=== PATIENT | female | born 1975 | race Caucasian/White ===

== ENCOUNTER 2018-04-21 08:11 | Outpatient (CLI) | payer BC ==
--- NOTE | 2018-04-21 11:40 | MRI ---
MRI LUMBAR SPINE WITH AND WITHOUT CONTRAST: HISTORY: Left-sided lumbago. COMPARISON: None. TECHNIQUE: An MRI of the lumbar spine is performed with and without intravenous Gadolinium administration. Mult isequential, multiplanar imaging is performed. FINDINGS: Appropriate T1 marrow signal intensity of the lumbar vertebrae. Lumbar spine vertebral body height i s maintained. There is no fracture. No significant STIR hyperintensity to suggest vertebral body ed petra or ligamentous injury. No abnormal enhancement of the vertebral bodies. No abnormal enhancement within the thecal sac, incl uding the cauda equina and conus medullaris. Symmetric signal intensity of the psoas muscles. Appropriate signal intensity of the visualized danielito d organs. The conus medullaris terminates at the inferior aspect of L1. T12-L1: Adequate disk hydration. No significant central canal stenosis or foraminal narrowing. L1-L2: Adequate disk hydration. No significant central canal stenosis. The neural foramina are pat ent. L2-L3: Adequate disk hydration. No significant central canal stenosis. The foramina are patent. L3-L4: Adequate disk hydration. No significant central canal stenosis. The foramina are patent. L4-L5: Adequate disk hydration. No significant central canal stenosis. The right neural foramen is patent. There is mild narrowing of the left neural foramen. In the left neural foramen, there is T 2 and STIR hyperintensity with associated enhancement involving the annulus of the disk, compatible w ith a small annular fissure. The annular fissure does abut the foraminal left L4 nerve root. L5-S1: Mild loss of disk space height. There is a central/left subarticular disk bulge. No signifi cant stenosis upon the thecal sac. No significant mass effect upon the traversing left S1 nerve root . There is mild bilateral neural foraminal narrowing. IMPRESSION: 1. Degenerative disk disease at L4-L5 and at L5-S1. 2. Annular fissure involving the left neural foramen, at L4-L5. The annular fissure is at the level of the foraminal left L4 nerve root. 3. No abnormal enhancement within the thecal sac. POS: [facility]
== END 2018-04-21 08:12 | disposition home or self-care (01) ==
LOC: SCSMRI 08:11
PROVIDERS: ATTEND Nurse Practitioner Acute Care
DX: M51.16 Intervertebral disc disorders with radiculopathy, lumbar region (principal); M51.37 Other intervertebral disc degeneration, lumbosacral region; M48.061 Spinal stenosis, lumbar region without neurogenic claudication
CPT/HCPCS: 72158

== ENCOUNTER 2020-05-25 09:13 | Outpatient (CLI) | payer BC | END 2020-05-25 09:14 | disposition home or self-care (01) | LOC: DTY/OP 09:13 | PROVIDERS: ATTEND Surgery | DX: K21.00 Gastro-esophageal reflux disease with esophagitis, without bleeding (principal); R03.0 Elevated blood-pressure reading, without diagnosis of hypertension; Z68.38 Body mass index [BMI] 38.0-38.9, adult | CPT/HCPCS: 97802 ==

== ENCOUNTER 2022-11-15 07:42 | Outpatient (CLI) | payer BC | END 2022-11-15 07:43 | disposition home or self-care (01) | LOC: SCSMRI 07:42 | PROVIDERS: ATTEND Nurse Practitioner Family | DX: M51.16 Intervertebral disc disorders with radiculopathy, lumbar region (principal); M51.36 Other intervertebral disc degeneration, lumbar region | CPT/HCPCS: 72148 ==